=== PATIENT | male | born 1990 | race Caucasian/White ===

== ENCOUNTER → 2017-03-26 | Outpatient (REF) ==
--- NOTE | 2017-03-27 02:45 | REP ---
Clinical: Pain and disability. Technique: AP, lateral, bilateral oblique and sunrise views left knee . Findings: Mild medial joint space narrowing is suggested and should be correlated clinically. The osseous structures and joint spaces are otherwise intact and essentially normal for age. There is no evidence for acute fracture or dislocation. No joint effusion is appreciated. Surrounding soft tissues are unremarkable. No subcutaneous emphysema or radiodense foreign body. Impression: Mild medial joint space narrowing. No acute fracture or dislocation. Signed by Morgan Vincent MD 03/27/2017 02:36 A
--- NOTE | 2017-03-27 02:46 | REP ---
Clinical: Pain and disability. Technique: AP, lateral, coned-down views of the lumbar spine. Findings: Three views of the lumbosacral spine demonstrate satisfactory alignment and lordosis without acute fracture / compression injury or subluxation. No significant degenerative changes are appreciated by radiographic evaluation. Impression: Relatively normal radiographic evaluation of the lumbosacral spine. No acute fracture / compression injury or subluxation. If the patient remains symptomatic consider MRI for further investigation of the intervertebral discs and associated soft tissue structures. Signed by Morgan Vincent MD 03/27/2017 02:37 A
== END ==
LOC: M SMT 11:47
PROVIDERS: ATTEND Internal Medicine
DX: Z02.1 Encounter for pre-employment examination (principal)